=== PATIENT | male | born 1990 | race Caucasian/White ===

== ENCOUNTER 2017-09-20 23:10 | Emergency (ER) | payer OTHER ==
[~2017-09-20] VITALS: Ht 177.8 cm; Wt 72.6 kg
[2017-09-20 23:39] LABS: ABSOLUTE BASOPHILS 0.1 thou/uL (0.0-0.2); ABSOLUTE EOSINOPHILS 0.1 thou/uL (0.0-0.7); ABSOLUTE LYMPHOCYTES 3.1 thou/uL (0.8-5.3); ABSOLUTE MONOCYTES 1.1 thou/uL (0.0-1.2); ABSOLUTE NEUTROPHILS 6.4 thou/uL (1.6-8.1); BASOPHILS 0.6 %; EOSINOPHILS 0.8 %; HEMATOCRIT 50.3 % (42.0-52.0); HEMOGLOBIN 17.2 gm/dL (14.0-18.0); MCHC 34.2 g/dL (28.0-37.0); MCV 90.7 fL (80.0-100.0); MONOCYTES 9.8 %; MPV 8.9 fl. (7.2-11.1); NUCLEATED RBCS 0 /100WBC; PLATELET COUNT* 246 thou/uL (150-400); POLYS 59.8 %; RBC 5.55 mil/uL (4.50-6.00); RDW-CV 14.6 % (10.5-14.5); WBC 10.7 thou/uL (4.0-11.0)
[2017-09-20 23:49] LABS: ANION GAP 13 mmol/L (7-16); BUN 14 mg/dL (7-18); CALCIUM 8.9 mg/dL (8.5-10.1); CHLORIDE 99 mmol/L (98-107); CO2 27 mmol/L (21-32); CREATININE 1.1 mg/dL (0.6-1.3); GLUCOSE 122 mg/dL (70-99); POTASSIUM 3.8 mmol/L (3.5-5.1); SODIUM 139 mmol/L (136-145)
[2017-09-20 23:55] LABS: ALBUMIN 4.7 g/dL (3.4-5.0); ALKALINE PHOSPHATASE 65 U/L (46-116); LIPASE 92 U/L (73-393); MAGNESIUM 2.2 mg/dL (1.8-2.4); SGOT 64 U/L (15-37); SGPT 145 U/L (30-65); TOTAL PROTEIN 8.2 g/dL (6.4-8.2); TROPONIN-I LEVEL <0.06 ng/mL (<0.06)
[2017-09-21 00:10] LABS: URINE BLOOD 1+ (Negative); URINE CLARITY CLEAR; URINE COLOR DARK YELLOW; URINE GLUCOSE-RANDOM TRACE (Negative); URINE KETONES TRACE (Negative); URINE LEUKOCYTES NEGATIVE (Negative); URINE NITRITE NEGATIVE (Negative); URINE PROTEIN NEGATIVE (Negative); URINE SPECIFIC GRAVITY >= 1.030 (1.005-1.030); URINE UROBILINOGEN 0.2 E.U./dl (0.2-1.0)
[2017-09-21 00:13] LABS: URINE BILIRUBIN 2+ (Negative)
[2017-09-21 00:14] LABS: ICTOTEST (BILI CONFIRMATORY) Negative (Negative)
[2017-09-21 00:17] LABS: AMP/METHAMP POSITIVE (Negative); BARBITURATES Negative (Negative); BENZODIAZEPINES POSITIVE (Negative); COCAINE Negative (Negative); METHADONE POSITIVE (Negative); OPIATES Negative (Negative); PCP Negative (Negative); THC POSITIVE (Negative)
[2017-09-21 00:21] LABS: BACTERIA None Seen /HPF (None Seen); CASTS None Seen /LPF (None Seen); CRYSTALS None Seen /LPF (None Seen); MUCUS >6 Heavy strn/LPF (None Seen); SQUAMOUS NONE SEEN /LPF (0-3); URINE RBC 3-10 Few /HPF (0-2); URINE WBC None Seen /HPF (0-5)
[2017-09-21 03:05] VITALS: BP 136/74
--- NOTE | 2017-09-21 14:40 | EKG ---
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1990 Requested By: Kaz Betancourt Order Number: [id number] MD: Munir Marroquin Measurements Intervals [place] Rate: 133 P: 63 MO: 141 QRS: -4 QRSD: 85 T: 74 QT: 290 QTc: 432 Interpretive Statements Sinus tachycardia Borderline Q waves in lateral leads Baseline wander in lead(s) I No previous ECG available for comparison Electronically Signed On 09-21-2017 14:40:42 [address] [employer]IGHT [employer]DUCTOR by Munir Marroquin [email or web address] <ELECTRONICALLY SIGNED> By: Munir Marroquin MD, [facility] 09/21/17 1440 D: 01/2313 13 Munir Marroquin MD, FACC /EPI
--- NOTE | 2017-09-21 14:43 | EKG ---
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
== END 2017-09-21 03:05 | disposition home or self-care (01) ==
LOC: M.ERS 23:10
PROVIDERS: Emergency Medicine Emergency Medical Services
DX: R07.89 Other chest pain (principal); F10.99 Alcohol use, unspecified with unspecified alcohol-induced disorder; Z91.010 Allergy to peanuts